=== PATIENT | female | born 1965 | race Caucasian/White ===

== ENCOUNTER 2016-07-15 13:02 | Emergency (ER) | payer OTHER, BC ==
[2016-07-15] MEDS ORDERED: HYDROCODONE/ACETAMINOPHEN 5/325MG TABLET ONE (14:26)
--- NOTE | 2016-07-15 14:40 | RAD ---
LOWER LEG RIGHT COMPARISON: None. HISTORY: 50-year-old female who fell at work and has right lower leg pain. Initial encounter. FINDINGS: Views: AP and lateral right tibia fibula. Bones: Minimally displaced comminuted fracture of the proximal diaphysis of the right fibula. Postoperative change from anterior cruciate ligament reconstruction in the distal femur and the proximal tibia. Joints: Mild osteoarthritis of the right knee. Soft tissues: Normal. IMPRESSION: 1. Solitary comminuted minimally displaced fracture of the proximal diaphysis of the right fibula. No fracture of the tibia. 2. Postoperative changes from anterior cruciate ligament reconstruction at the right knee, with mild osteoarthritis.
== END 2016-07-15 15:59 | disposition home or self-care (01) ==
LOC: ED 13:02
DX: S82.831A Other fracture of upper and lower end of right fibula, initial encounter for closed fracture (principal); W01.0XXA Fall on same level from slipping, tripping and stumbling without subsequent striking against object, initial encounter; Y93.01 Activity, walking, marching and hiking; Y92.9 Unspecified place or not applicable; Y99.0 Civilian activity done for income or pay
CPT/HCPCS: 73590; 99283; 29515; 99284; A9270